=== PATIENT | female | born 1975 | race Caucasian/White ===

== ENCOUNTER → 2017-07-29 | Outpatient (CLI) | payer BC ==
[~2017-07-29] MED LIST: No meds per pt.
[2017-07-29 08:58] LABS: HEMATOCRIT 39.7 % (34.6-47.8); HEMOGLOBIN 12.8 g/dL (11.7-16.4); WHITE BLOOD COUNT 6.8 x10^3/uL (3.4-10)
== END | disposition home or self-care (01) ==
LOC: STAR 07:57
PROVIDERS: ATTEND Specialist
DX: D25.2 Subserosal leiomyoma of uterus (principal); N94.5 Secondary dysmenorrhea
CPT/HCPCS: 36415; 84703; 85025

== ENCOUNTER 2017-08-05 05:55 | Day surgery (SDC) | payer BC ==
[~2017-08-05] VITALS: Ht 165.1 cm; Wt 72.0 kg
[2017-08-05] MEDS ORDERED: LACTATED RINGERS 1,000 ML IV SCH (06:07)
[2017-08-05 06:19] VITALS: BP 110/78
[2017-08-05] MEDS ORDERED: LIDOCAINE 1%, 2ML SQ PRN (06:30)
[2017-08-05 06:45] LABS: HCG UR OBC PASS
[2017-08-05] MEDS ORDERED: BUPIVACAINE/PF-EPI 0.25% 1:200K ONE (06:48)
[2017-08-05] MEDS ORDERED: MIDAZOLAM 1 MG/ML, 2ML ONE (07:02)
[2017-08-05] MEDS ORDERED: FENTANYL PF 100 MCG/2ML ONE ×5 (07:02→10:11)
[2017-08-05] MEDS ORDERED: NEOSTIGMINE 1 MG/ML, 10ML ONE (07:26)
[2017-08-05] MEDS ORDERED: DEXAMETHASONE 4 MG/ML, 1ML ONE (07:26)
[2017-08-05] MEDS ORDERED: KETOROLAC 30 MG/1 ML ONE (07:26)
[2017-08-05] MEDS ORDERED: CEFOTETAN 2 GM ONE (07:26)
[2017-08-05] MEDS ORDERED: GLYCOPYRROLATE 0.2MG/1ML, 5ML ONE (07:26)
[2017-08-05] MEDS ORDERED: ONDANSETRON 2MG/ML, 2ML ONE (07:26)
[2017-08-05] MEDS ORDERED: PROPOFOL 10 MG/ML, 20ML ONE (07:26)
[2017-08-05] MEDS ORDERED: ROCURONIUM 10 MG/ML ONE (07:26)
[2017-08-05] MEDS ORDERED: ONDANSETRON 2MG/ML, 2ML IVPush PRN ×2 (07:30→11:30)
[2017-08-05] MEDS ORDERED: MEPERIDINE/PF 25MG/0.5ML IVPush PRN (07:30)
[2017-08-05] MEDS ORDERED: HYDROmorphone 1 MG/ML, 1ML IV PRN (07:30)
[2017-08-05] MEDS ORDERED: LABETALOL 5MG/ML, 20ML IV PRN (07:30)
[2017-08-05] MEDS ORDERED: ACETAMINOPHEN 325 MG TABLET PO PRN (07:30)
[2017-08-05] MEDS ORDERED: PROMETHAZINE 25 MG/ML, 1ML IV PRN (07:30)
[2017-08-05] MEDS ORDERED: OXYcodone 5 MG/5 ML ORAL.SOL UDC PO PRN (07:30)
[2017-08-05] MEDS ORDERED: hydrALAzine 20 MG/ML, 1ML IV PRN (07:30)
[2017-08-05] MEDS ORDERED: OXYcodone 5 MG/5 ML ORAL.SOL UDC ONE (09:38)
[2017-08-05] MEDS ORDERED: ACETAMINOPHEN 650 MG/20.3 ML UDC ONE (09:38)
[2017-08-05] MEDS: FENTANYL PF 100 MCG/2ML IV PRN ×4 (09:39→10:41)
[2017-08-05] MEDS ORDERED: MEPERIDINE/PF 25MG/0.5ML ONE (09:42)
[2017-08-05] MEDS ORDERED: OXYcodone/APAP 5/325MG TABLET PO PRN (11:30)
[2017-08-05] MEDS ORDERED: OXYcodone IR 5MG TABLET PO PRN (11:30)
[2017-08-05] MEDS ORDERED: OXYcodone IR 5MG TABLET ONE (11:30)
[2017-08-05] MEDS ORDERED: PROMETHAZINE 25 MG SUPP PR ONE (12:45)
[2017-08-05] MEDS ORDERED: PROMETHAZINE 12.5 MG SUPP PR PRN (13:00)
== END 2017-08-05 13:10 ==
LOC: OUT 05:55
PROVIDERS: ATTEND Specialist
DX: N92.0 Excessive and frequent menstruation with regular cycle (principal); D25.9 Leiomyoma of uterus, unspecified
CPT/HCPCS: 52000; 58571; 81025; 88307; J1100; J1885; J2175; J2250; J2405; J2704; J2710; J3010; J7120; S2900; J3490; S0074

== ENCOUNTER 2020-01-24 07:48 | Outpatient (CLI) | payer OTHER | END 2020-01-24 23:59 | disposition home or self-care (01) | LOC: CFH 07:48 | PROVIDERS: ATTEND Family Medicine | DX: N63.10 Unspecified lump in the right breast, unspecified quadrant (principal) | CPT/HCPCS: 76642; 77066; G0279 ==